=== PATIENT | male | born 1980 | race Caucasian/White ===

== ENCOUNTER → 2018-06-04 12:33 | Outpatient (CLI) | payer MEDICAID, SELFPAY ==
--- NOTE | 2018-06-04 12:46 | DI.REPORT_ITS ---
SYMPTOM/DIAGNOSIS: RT TOE PAIN M79.674, INJURY TO RT GREAT TOE RIGHT FOOT: Three views. No priors. There is a comminuted fracture of the distal phalanx of the right great toe. The fracture involves the terminal tuft. There is also longitudinally oriented fracture involving the lateral aspect of the base of the distal phalanx of the great toe. No other fracture or dislocation is seen. There is soft tissue swelling of the great toe noted. Mild periarticular spurring is seen at the first metatarsal phalangeal joint. No radiopaque foreign bodies are seen in the soft tissues. ' IMPRESSION: Nondisplaced comminuted fracture involving the distal phalanx of the right great toe.
== END ==
PROVIDERS: PCP Family Medicine; Visit Provider Family Medicine
DX: M79.674 Pain in right toe(s) (principal); S92.424A Nondisplaced fracture of distal phalanx of right great toe, initial encounter for closed fracture
CPT/HCPCS: 73630

== ENCOUNTER → 2018-06-26 11:10 | Outpatient (CLI) | payer MEDICAID, SELFPAY ==
--- NOTE | 2018-06-26 11:20 | DI.REPORT_ITS ---
SYMPTOMS/DIAGNOSIS: F/U FX RIGHT GREAT TOE: Three views. Comparison 06/04/18. There has been no change in alignment of the comminuted fracture involving the distal phalanx of the right great toe. The fracture lines are still well visualized. No new fractures or dislocations are present.
== END ==
PROVIDERS: PCP Family Medicine; Visit Provider Physician Assistant Surgical
DX: S92.424D Nondisplaced fracture of distal phalanx of right great toe, subsequent encounter for fracture with routine healing (principal)
CPT/HCPCS: 73660